=== PATIENT | female | born 1975 | race Caucasian/White ===

== ENCOUNTER 2023-12-07 10:39 | Emergency (ER) | payer BC, SELFPAY ==
[2023-12-07 10:42] VITALS: BP 207/106; PULSE 85; RESP 16; TEMP 36.9; O2SAT 100; BMI 24.2
[2023-12-07 10:48] VITALS: BP 197/111; PULSE 101; O2SAT 100
[2023-12-07 11:00] VITALS: BP 168/98; PULSE 73; O2SAT 100
--- NOTE | 2023-12-07 11:05 | CT_ITS ---
FINAL REPORT TECHNIQUE: After the administration of IV contrast, axial images through the head was performed by computed tomography with venogram technique. This study was performed with techniques to keep radiation doses as low as reasonably achievable (ALARA). Individualized dose reduction techniques using automated exposure control or adjustment of mA and/or kV according to the patient's size were employed. CLINICAL HISTORY: new headache, frontal, eye issues FINDINGS: The vessels enhance in a normal fashion. The superior sagittal sinus is intact. The transverse and sigmoid sinuses are intact. There is no evidence of dural venous thrombosis. IMPRESSION: No evidence of dural venous thrombosis. Reviewed, Interpreted and Dictated by Alpesh Godinez MD Transcribed by Lucia Regalado Authenticated and [facility]
--- NOTE | 2023-12-07 11:05 | CT_ITS ---
FINAL REPORT TECHNIQUE: Axial CT images were performed through the head. Coronal reformatted images were submitted. This study was performed with techniques to keep radiation doses as low as reasonably achievable (ALARA). Individualized dose reduction techniques using automated exposure control or adjustment of mA and/or kV according to the patient's size were employed. CLINICAL HISTORY: new headache, frontal FINDINGS: The ventricles are normal in size. There is no evidence of hemorrhage. There is no mass or edema identified. There is no abnormal extra-axial fluid seen. There is lobular mucoperiosteal thickening in both maxillary sinuses, left greater than right consistent with chronic sinusitis. IMPRESSION: No acute intracranial process. Chronic sinusitis. Reviewed, Interpreted and Dictated by Alpesh Godinez MD Transcribed by Lucia Regalado Authenticated and [facility]
--- NOTE | 2023-12-07 11:08 | ED_ITS ---
Discharge Plan Disposition Patient Disposition: Home, Self-Care Condition: Good Prescriptions Prescriptions: New amoxicillin-pot clavulanate 875-125 mg tablet 1 tab PO BID 14 Days Qty: 28 0RF fluticasone propionate [Flonase Allergy Relief] 50 mcg/actuation spray,suspension 1 spray intranasal BID Qty: 16 0RF Rx Instructions: administer into each nostril cetirizine [Zyrtec] 10 mg tablet 10 mg PO DAILY Qty: 30 0RF prednisone 20 mg tablet 40 mg PO DAILY 3 Days Qty: 6 0RF Rx Instructions: Please start 12/08/2023. ketorolac 10 mg tablet 10 mg PO Q8H PRN (Reason: pain) Qty: 14 0RF Rx Instructions: maximum total duration of 5 days from all oral, intranasal, or parenteral formulations Referrals Follow up/Referrals: Pippa Jenkins APRN [Nurse Practitioner] - See instructions Yunier Villarreal DO [Staff Physician] - See instructions Provider,Beau, [Primary Care Provider] - See instructions Brad Jacobsen MD [Staff Physician] - See instructions Activity Restrictions/Add. Instructions Additional Instructions/Restrictions: You were evaluated in the emergency department today. At this time, imaging is concerning for chronic sinus infection. Your labs are reassuring with the exception of a very mild elevation in your liver enzymes, which is not concerning at this time. Please follow-up for recheck of this. We are prescribing you multiple indications. Toradol as an anti-inflammatory that can help with headaches. This is an NSAID, so do not take it with ibuprofen, Aleve, or Advil. We also prescribed you a short course of steroids to take. You were given initial dose here, so do not take the prednisone until tomorrow 12/08/2023. Augmentin is an antibiotic. Please take the full course of this as prescribed. Use the Flonase and Zyrtec daily as prescribed. You may also take Tylenol every 4-6 hours at home as needed for pain. Follow-up closely with your primary care provider for reassessment of your symptoms as well as reassessment of your blood pressure. We are also giving information for ENT follow-up given your chronic sinusitis and the symptoms that you are having. Return to the emergency department right away for new or worsening symptoms, such as significant worsening of pain, visual disturbance, or other concerns. Clinical Impressions Clinical Impression: Headache, Transaminitis, High blood pressure, Chronic sinusitis Stand Alone Forms Stand Alone Forms: Work/School Release Instructions Patient Instructions: DI for Sinusitis, DI for Sinus Headache Print Language Print Language: Divehi Discharge ED Provider: Gisell Richardson General Adult HPI General Chief complaint: Headache Stated complaint: pain behind left eye Time Seen by Provider: 12/07/23 10:52 Mode of Arrival: Ambulatory Source of Information: Patient Limitations: No Limitations Description of Symptoms (Recalled from ER Triage Doc. by RN): pt presents to ED with c/o pulsing sensation behind left eye. pt reports a history of high blood pressure, but she does not have a pcp and does not take blood pressure medication. symptoms began last night. pt reports to being more stressed than normal the past few days. History of Present Illness HPI narrative: This patient is a 47-year-old female who reports a history of hypertension for which she does not take any medications presenting to the emergency department for evaluation with concern for headache. Patient states last night around 9 PM, she started having a headache in the front side of her head that feels like a brain freeze. She states that it feels that she is having a pulsing sensation behind her left eye. She notes it comes and goes. She denies experiencing any anything like this in the past. She denies any fevers, chills, vision changes, double vision, blurry vision, unilateral weakness, numbness, tingling, fevers, or other concerns. She does note that she has had issues with her sinuses for a while now, states she chronically has congestion and drainage. Related Data Previous Rx's ?Medication ?Instructions ?Recorded amoxicillin 875 mg-potassium 1 tab PO BID 14 days #28 tabs 12/07/23 clavulanate 125 mg tablet cetirizine 10 mg tablet (Zyrtec) 10 mg PO DAILY #30 tabs 12/07/23 fluticasone propionate 50 1 spray intranasal BID #16 grams 12/07/23 mcg/actuation nasal spray,suspension (Flonase Allergy Relief) ketorolac 10 mg tablet 10 mg PO Q8H PRN pain #14 tabs 12/07/23 prednisone 20 mg tablet 40 mg (2 x 20 mg) PO DAILY 3 days 12/07/23 #6 tabs Allergies Allergy/AdvReac Type Severity Reaction Status Date / Time No Known Allergies Allergy Verified 12/07/23 10:52 [facility] Disclaimer: The information contained in this section may have been updated after the patient was seen, as this information can be updated by other users. Social History Smoking Status: Current every day smoker alcohol intake: current current occupational status: employed Travel in the last 8 weeks: None ROS Obtained: Yes All systems reviewed & no additional complaints except as documented Physical Exam General General appearance: alert and in no apparent distress Head Head exam: atraumatic and normocephalic Eye Eye exam: Present normal appearance, PERRL and EOMI ENT ENT exam: Present normal exam, normal oropharynx, mucous membranes moist and normal external ear exam Neck Neck exam: Present normal inspection, full ROM and trachea midline; Absent tenderness Chest Chest inspection: Present normal inspection and symmetric chest wall rise; Absent tenderness Respiratory Respiratory exam: Present normal lung sounds bilaterally; Absent respiratory distress, wheezes, stridor or accessory muscle use Cardiovascular Cardiovascular exam: Present regular rate and normal rhythm Abdominal Exam Abdominal exam: Present soft; Absent distention, tenderness or guarding Extremities Exam Extremities exam: Present normal inspection, full ROM and normal capillary refill; Absent tenderness or edema Back Exam Back exam: Present normal inspection and full ROM; Absent tenderness Neurological Exam Neurological exam: Present alert, oriented X3, CN II-XII intact and normal gait; Absent motor sensory deficit Psychiatric Psychiatric exam: Present normal affect and normal mood Skin Skin exam: Present warm and dry Medical Decision Making Medical Records Medical records reviewed: Yes I reviewed the patient's medical records. Screening: Per USPSTF and CDC recommendations, given the prevalence of disease in our region, it is our hospital?s policy to screen for HIV and viral Hepatitis for all patients aged 18 and over and those with ongoing risk factors. Elieser Inquiry Pt receiving controlled substance: No Vital Signs: 12/07/23 10:42 12/07/23 10:48 12/07/23 11:00 Temperature 98.4 F Temperature Source Oral Pulse Rate 101 H 73 Pulse Rate [Left Radial] 85 Respiratory Rate 16 Blood Pressure 197/111 H 168/98 H Blood Pressure [Right Arm] 207/106 H Blood Pressure Mean [Right Arm] 139 02 Sat by Pulse Oximetry 100 100 100 Oxygen Delivery Method Room Air Room Air 12/07/23 11:31 12/07/23 12:00 Temperature Temperature Source Pulse Rate 62 74 Pulse Rate [Left Radial] Respiratory Rate Blood Pressure 155/99 H 151/85 H Blood Pressure [Right Arm] Blood Pressure Mean [Right Arm] 02 Sat by Pulse Oximetry 99 99 Oxygen Delivery Method Room Air Room Air Lab Data Lab results reviewed: Yes I reviewed the patient's lab results. Lab Results 12/07/23 10:53: WBC 9.3, RBC 4.69, Hgb 15.5, Hct 47.7 H, MCV 101.7 H, MCH 33.1 H , MCHC 32.6, RDW 12.7, Plt Count 223, MPV 7.1 L, Neut % (Auto) 74.8, Lymph % (Auto) 17.3, [place] % (Auto) 4.8, Eos % (Auto) 1.7, Baso % (Auto) 1.4, Neut # (Auto) 7.0, Lymph # (Auto) 1.6, [place] # (Auto) 0.5, Eos # (Auto) 0.2, Baso # (Auto) 0.1, Sodium 137, Potassium 4.0, Chloride 99, Carbon Dioxide 29, Anion Gap 13.0, BUN 16, Creatinine 0.50 L, Estimated Creat Clear 151, Estimated GFR 133, Est GFR ( Amer) 161, Glucose 131 H, Calcium 10.2, Total Bilirubin 0.9, A ST 78 H, ALT 105 H, Alkaline Phosphatase 71, Total Protein 9.4 H, Albumin 5.2 H, Globulin 4.2 H, Albumin/Globulin Ratio 1.2, Serum HCG, Qual Negative, HIV 1&2 Antibody Rapid Nonreactive 12/07/23 10:53 12/07/23 10:53 Orders (Tests/Meds): ED MEDICATIONS Generic Name Dose Route Start Last Admin Trade Name Freq PRN Reason Stop Dose Admin Sodium Chloride 10 ml 12/07/23 12:06 12/07/23 12:07 Sodium Chloride 0.9% 10ml Syr (Rad Only) IV 01/06/24 12:05 10 ml NEEDED PRN Administration Maintain IV Site Discontinued Medications Generic Name Dose Route Start Last Admin Trade Name Freq PRN Reason Stop Dose Admin Acetaminophen 1,000 mg 12/07/23 11:06 12/07/23 11:27 Acetaminophen 1,000mg/100ml Vial IV 12/07/23 11:07 1,000 mg ONCE ONE Administration Dexamethasone Sodium Phosphate 10 mg 12/07/23 11:07 12/07/23 11:27 Dexamethasone 4mg/Ml 1ml Vial IV 12/07/23 11:08 10 mg ONCE ONE Administration Diphenhydramine HCl 25 mg 12/07/23 11:07 12/07/23 11:26 Diphenhydramine 50mg/Ml Vial IV 12/07/23 11:08 25 mg ONCE ONE Administration Lactated Ringer's 1,000 mls @ 999 mls/hr 12/07/23 11:06 12/07/23 11:27 Lactated Ringer's 1000 Ml Bag IV 12/07/23 12:06 999 mls/hr .Q1H1M ONE Administration Iopamidol 80 ml 12/07/23 12:06 12/07/23 12:07 Iopamidol-370 (76%);100ml Bottle IV 12/07/23 12:07 80 ml ONCE ONE Administration Ketorolac Tromethamine 15 mg 12/07/23 11:06 12/07/23 11:26 Ketorolac 30mg/Ml Vial IV 12/07/23 11:07 15 mg ONCE ONE Administration Metoclopramide HCl 5 mg 12/07/23 11:06 12/07/23 11:26 Metoclopramide Hcl 10mg/2ml Vial IVP 12/07/23 11:07 5 mg ONCE ONE Administration Sodium Chloride 50 ml 12/07/23 12:06 12/07/23 12:06 0.9 % Sodium Chloride 50 Ml Vial IV 12/07/23 12:07 50 ml ONCE ONE Administration ORDERS Category Date Time Status CT Venogram head Stat Cat Scan 12/07/23 11:[address] head/brain wo con Stat Cat Scan 12/07/23 11:05 Completed CBC w/Auto Diff [Complete Blood Count Auto Diff] Stat Lab 12/07/23 10:53 Completed CMP [Comprehensive Metabolic Panel] Stat Lab 12/07/23 10:53 Completed HIV (1&2) Antibody Rapid Stat Lab 12/07/23 10:53 Completed Hep C Ab with Reflex to RNA Stat Lab 12/07/23 10:53 Received Serum [HCG Qualitative, Serum] Stat Lab 12/07/23 10:53 Completed Medical Decision Narrative: In summary, this patient is a 47-year-old female presenting to the Emergency Department for evaluation of headache and pain behind her left eye. Differential diagnoses considered include but are not limited to migraine, tension headache, sinusitis, cavernous sinus thrombosis, orbital cellulitis, acute angle-closure glaucoma. Ruling out the most morbid conditions drove assessment. It should be noted patient's history includes hypertension which is not at goal therapy. This complicates all aspects of care by increasing patient's risk for morbidity. On exam, the patient is sitting upright on the stretcher in no acute distress. She is hypertensive with systolic in the 160s to 170s on my assessment, but otherwise vitals are reassuring. She is neurologically intact with no obvious external abnormalities to her eyes. Ocular pressures 25 in the right eye and 21 in the left eye. Workup included CBC, CMP, CT head without contrast, and CT venogram with IV contrast. She was given a migraine cocktail of a bolus of IV fluids as well as IV Toradol, acetaminophen, Reglan, Benadryl, and dexamethasone. I independently interpreted CT scan prior to the radiologist read and noted no obvious large space-occupying lesion. Please see their read for final interpretation. They noted no concerns for cavernous sinus thrombosis or intracranial pathology, but the patient does have chronic sinusitis which I do feel fits the clinical picture. Labs were obtained that demonstrated mild transaminitis but no other acutely concerning abnormalities at this time.. On reassessment, patient had good improvement after administration of interventions above. She still has some pain but it is improved. Blood pressure is improved to systolics in the 130s on cardiac telemetry. Ultimately, I feel she is appropriate for discharge home with close outpatient follow-up with a trial of multiple medications to treat chronic sinusitis, including Augmentin, Flonase, Zyrtec, prednisone, and then Toradol to have as needed for headache. She was given instructions for close follow-up, strict return precautions, and she was discharged after all questions were answered Critical Care Critical Care Time Critical Care Time: No
[2023-12-07 11:13] LABS: Basophils # 0.1 K/mm3 (0-0.2); Basophils % 1.4 % (0.1-2.0); Eosinophils # 0.2 K/mm3 (0.0-0.4); Eosinophils % 1.7 % (0.1-12.0); Hematocrit 47.7 % (37.0-47.0); Hemoglobin 15.5 g/dL (12.2-16.2); Lymphocytes # 1.6 K/mm3 (0.7-4.5); Lymphocytes % 17.3 % (10-50); Mean Corpuscular HGB Conc 32.6 g/dL (31.8-35.4); Mean Corpuscular Hemoglobin 33.1 pg (27.0-31.2); Mean Corpuscular Volume 101.7 fl (81-99); Mean Platelet Volume 7.1 fl (7.4-10.4); Monocytes # 0.5 K/mm3 (0.1-1.0); Monocytes % 4.8 % (1.7-9.3); Neutrophils % 74.8 % (37.0-80.0); Platelet Count 223 K/mm3 (142-424); Red Blood Count 4.69 M/mm3 (4.20-5.40); Red Cell Distribution Width 12.7 % (11.5-17.5); White Blood Count 9.3 K/mm3 (4.8-10.8)
[2023-12-07 11:14] LABS: Albumin Level 5.2 g/dl (3.5-5.0); Chloride 99 mmol/L (98-107); Sodium 137 mmol/L (136-145)
[2023-12-07 11:17] LABS: Alanine Aminotransferase 105 U/L (12-78); Aspartate Amino Transferase 78 U/L (14-36); Blood Urea Nitrogen 16 mg/dl (7-17); Carbon Dioxide 29 mmol/L (22.0-30.0); Creatinine Clearance Estimated 151 mL/min (50-200); Estimated Glomerular Filt Rate 133 ml/min (>60); GFR (African American) 161 ML/MIN (>60)
[2023-12-07 11:18] LABS: Albumin/Globulin Ratio 1.2 (1.1-1.8); Alkaline Phosphatase 71 U/L (38-126); Bilirubin,Total 0.9 mg/dl (0.2-1.3); Calcium 10.2 mg/dl (8.4-10.2); Globulin 4.2 g/dL (1.3-3.2); Glucose 131 mg/dl (74-100); Total Protein,Serum 9.4 g/dl (6.3-8.2)
[2023-12-07] MEDS: KETOROLAC 30MG/ML VIAL 15 MG IV (11:26)
[2023-12-07] MEDS: METOCLOPRAMIDE HCL 10MG/2ML VIAL 5 MG IVP (11:26)
[2023-12-07] MEDS: diphenhydrAMINE 50MG/ML VIAL 25 MG IV (11:26)
[2023-12-07] MEDS: DEXAMETHASONE 4MG/ML 1ML VIAL 10 MG IV (11:27)
[2023-12-07] MEDS: ACETAMINOPHEN 1,000MG/100ML VIAL 1000 MG IV (11:27)
[2023-12-07] MEDS: LACTATED RINGERS 1000ML 1,000 ML 999 ML IV (11:27)
[2023-12-07 11:31] VITALS: BP 155/99; PULSE 62; O2SAT 99
[2023-12-07 11:35] LABS: HCG Qualitative, Serum Negative (Negative)
[2023-12-07 12:00] VITALS: BP 151/85; PULSE 74; O2SAT 99
[2023-12-07] MEDS: 0.9 % SODIUM CHLORIDE 50 ML VIAL IV (12:06)
[2023-12-07] MEDS: SODIUM CHLORIDE 0.9% 10ML SYR (RAD ONLY) 10 ML IV (12:07)
[2023-12-07] MEDS: IOPAMIDOL-370 (76%);100ML BOTTLE 80 ML IV (12:07)
[2023-12-07 12:55] LABS: HIV (1&2) Antibody Rapid NONREACTIVE (NONREACTIVE)
[2023-12-07 13:38] VITALS: BP 156/90; PULSE 67; RESP 13; TEMP 36.7; O2SAT 98
[2023-12-08 11:19] LABS: HCV Ab Non Reactive (Non Reactive)
== END 2023-12-07 13:50 | disposition home or self-care (01) ==
PROVIDERS: Emergency Provider Emergency Medicine
DX: J32.9 Chronic sinusitis, unspecified (principal); R51.9 Headache, unspecified
CPT/HCPCS: 70450; 70496; 80053; 84703; 85025; 86803; 87389; 96361; 96374; 96375; 99285; J0131; J1100; J1200; J1885; J2765; J7120; Q9967